=== PATIENT | female | born 1950 | race Caucasian/White ===

== ENCOUNTER → 2017-03-26 | Outpatient (CLI) | payer OTHER ==
[~2017-03-26] MED LIST: ATV/1 PO; B-CO1CAP17 PO; CHOL2000 PO; CHOLTAB3 PO; CYM60 PO; DULO60CA44 PO; FAMO20TA11 PO; LPT/40 PO; METO100T44 PO; NSNN50 NAE; OMEG10007 PO; OMEP40CA41 PO; OXYC1TAB3 PO; PRLSR20 PO; RXC5 PO; SUCR1TAB29 PO; SYMIN/8045 INH; VNTHFA/IN INH
--- NOTE | 2017-03-26 13:39 | MAMMOGRAPHY REPORT ---
BILATERAL DIGITAL SCREENING MAMMOGRAM WITH CAD: 03/26/2017 CLINICAL HISTORY: Routine screening. Patient has no complaints. TECHNIQUE: Current study was also evaluated with a Computer Aided Detection (CAD) system. Bilateral CC and MLO views were obtained. COMPARISON: Comparison is made to exams dated: 03/25/2016 mammogram, 03/22/2015 mammogram, 01/27/2014 m ammogram, 01/20/2013 mammogram, 01/15/2012 mammogram, and 01/21/2011 mammogram - [facility] enter. BREAST COMPOSITION: The tissue of both breasts is heterogeneously dense, which may obscure small mas ses. FINDINGS: No suspicious masses, calcifications, or areas of architectural distortion are noted in ei ther breast. There has been no significant interval change compared to prior exams. Bilateral benign -appearing calcifications are not significantly changed. 2 biopsy marker clips are again noted withi n the left upper outer quadrant. IMPRESSION: ACR BI-RADS CATEGORY 2: BENIGN There is no mammographic evidence of malignancy. A 1 year screening mammogram is recommended. The pa tient will receive written notification of the results. Approximately 10% of breast cancers are not detected with mammography. A negative mammographic report should not delay biopsy if a clinically suggestive mass is present. Gladis Putnam M.D. ah/:03/26/2017 11:58:54 Cdl B Driver: Mela MORA(Yulia)(Manuel)(BD), [facility] letter sent: Normal 1/2 BI-RADS Code: ACR BI-RADS Category 2: Benign
== END | disposition home or self-care (01) ==
LOC: C.MAMM 09:38
PROVIDERS: ATTEND Obstetrics & Gynecology
DX: Z12.31 Encounter for screening mammogram for malignant neoplasm of breast (principal)

== ENCOUNTER → 2017-06-12 | Outpatient (CLI) | payer OTHER ==
[~2017-06-12] MED LIST changes: -FAMO20TA11 PO; -METO100T44 PO; +METO1TAB69 PO; -OMEP40CA41 PO; -OXYC1TAB3 PO; -RXC5 PO; -SUCR1TAB29 PO
--- NOTE | 2017-06-12 15:19 | DIAGNOSTIC IMAGING REPORT ---
(CHEST) THORAX WITHOUT CT DOSE: 194.49 mGycm CLINICAL HISTORY: 67 years-old Female with PULMONARY NODULE. Pulmonary nodule follow-up. TECHNIQUE: Multiaxial CT images of the chest were performed without contrast. A dose lowering technique was utilized adhering to the principles of ALARA. COMPARISON: CT chest 06/16/2011, chest radiograph 09/24/2016. FINDINGS: Nodules are seen to the thyroid, largest on the right measuring 9 mm. The heart is normal in size without pericardial effusion. Coronary arterial calcifications are noted. There is moderate atherosclerotic plaquing of the aorta. No pathologically enlarged lymph nodes are seen by CT size criteria. There are a few scattered nonenlarged paratracheal lymph nodes which are unchanged and likely benign. Moderate centrilobular emphysematous changes are noted within upper lobe predominant distribution. There is a mildly spiculated noncalcified pulmonary nodule present within the right upper lobe seen on image 86 of series 4 measuring 7 x 5 mm, previously measuring 3 x 3 mm on study dated 06/16/2011. 3 mm noncalcified pulmonary nodule is present within the medial segment right middle lobe on image 136, unchanged compatible with benign etiology. Small right Bochdalek hernia. There is no pneumothorax, pleural effusion or focal airspace consolidation. No additional suspicious pulmonary nodules are seen. The central airways are patent. There is mild bronchial wall thickening bilaterally. Mild biapical pleural parenchymal scarring. Imaged upper abdominal structures are unremarkable. Right renal artery stent graft is noted. Soft tissues are unremarkable. Multilevel endplate spurring is seen throughout the thoracic spine. No suspicious lytic or blastic bony lesions. IMPRESSION: 1. Mildly spiculated noncalcified pulmonary nodule of the right upper lobe, 7 x 5 mm which has enlarged from prior study dated 06/16/2011. This is suspicious for a slow growing primary bronchogenic carcinoma. Please refer to the follow-up guidelines as below. 2. Upper lobe predominant centrilobular emphysema with mild bilateral bronchial wall thickening suggesting bronchitis. 3. Additional incidental findings as above. Please refer to below summary of Fleischner criteria recommendations for follow-up of incidental CT nodules (Cesar Rust, Guidelines for management of small pulmonary nodules detected on CT scans: A statement from the Fleischner Society, Radiology 237: 882-726 2021.) SOLID NODULES Solitary nodule size: <6 mm * Low risk patients: no follow-up needed * high risk patients: optional CT at 12 months Solitary nodule size: 6-8 mm * Low risk patients: follow-up at 6-12 months, then consider further follow-up at 18-24 months * high risk patients: initial follow-up CT at 6-12 months and then at 18-24 months if no change Solitary nodule size: >8 mm * either low or high risk patients - consider follow-up CT at 3 months, and/or CT-PET, and/or biopsy Multiple nodules size: <6 mm * Low risk patients: no routine follow-up * high risk patients: optional CT at 12 months Multiple nodules size: 6-8 mm * Low risk patients: follow-up at 3-6 months, then consider further follow-up at 18-24 months * high risk patients: follow-up at 3-6 months, then at 18-24 months if no change Multiple nodules size: >8 mm * Low risk patients: follow-up at 3-6 months, then consider further follow-up at 18-24 months * high risk patients: follow-up at 3-6 months, then at 18-24 months if no change Note: newly detected indeterminate nodule in persons 35 years of age or older. * Low risk patients: minimal or absent history of smoking and/or other known risk factors * high risk patients: history of smoking or of other known risk factors (e.g. first degree relative with lung cancer, or exposure to asbestos, radon, uranium) * if a nodule up to 8 mm is partly solid or is ground glass further follow-up is required after 24 months to exclude possible slow growing adenocarcinoma (VIANEY) SUBSOLID NODULES Solitary pure ground-glass nodule * nodule size <6 mm - no CT follow-up required * nodule size >=6 mm - follow-up CT at 6-12 months, then every 2 years until 5 years Solitary part-solid nodule * nodule size <6 mm - no CT follow-up required * nodule size >=6 mm - follow-up CT at 3-6 months. If unchanged, and solid component remains <6 mm, then annual follow-up for 5 years Multiple subsolid nodules * nodule size <6 mm - follow-up CT at 3-6 months, consider further follow-up at 2 and 4 years if stable * nodule size >=6 mm - follow-up CT at 3-6 months, subsequent management based on the most suspicious nodule(s) The above report was generated using voice recognition software. It may contain grammatical, syntax or spelling errors. Electronically signed by: Mike Luna M.D. 06/12/2017 3:18 PM Dictated Date/Time: 06/12/2017 3:11 PM
== END | disposition home or self-care (01) ==
LOC: C.CTS 14:28
PROVIDERS: ATTEND Internal Medicine
DX: R91.1 Solitary pulmonary nodule (principal); R91.8 Other nonspecific abnormal finding of lung field

== ENCOUNTER → 2017-06-16 | Outpatient (CLI) | payer OTHER ==
--- NOTE | 2017-06-16 14:27 | DIAGNOSTIC IMAGING REPORT ---
ULTRASOUND-GUIDED FINE-NEEDLE ASPIRATION OF A RIGHT THYROID NODULE HISTORY: Right thyroid nodule. COMPARISON: Thyroid nodule FNA 07/24/2016. PROCEDURE: Written informed consent was obtained. The neck was prepped and draped in the usual sterile fashion. 1% lidocaine was used for local anesthesia. A total of 2 passes using a 25-gauge needle were made through the right thyroid nodule under ultrasound guidance. Specimens were given to the on-site pathologist who determined adequate tissue for diagnosis. The patient tolerated the procedure well. There were no immediate complications. IMPRESSION: Successful ultrasound-guided fine-needle aspiration of a right thyroid nodule. Electronically signed by: Khris Lobo M.D. 06/16/2017 2:25 PM Dictated Date/Time: 06/16/2017 2:25 PM
== END | disposition home or self-care (01) ==
LOC: C.ULTR 12:38
PROVIDERS: ATTEND Internal Medicine
DX: E06.3 Autoimmune thyroiditis (principal)

== ENCOUNTER → 2017-06-29 | Outpatient (CLI) | payer OTHER ==
--- NOTE | 2017-06-29 13:16 | DIAGNOSTIC IMAGING REPORT ---
PET/CT SKULL-THIGH CLINICAL HISTORY: 67 years-old Female presenting with PULMONARY NODULE, 7 x 5 mm mildly spiculated noncalcified right lung nodule, occasional cough, history of COPD. TECHNIQUE: PET/CT was performed from the base of the skull through the proximal thighs following the intravenous administration of 9.475 mCi of F18-FDG. Blood glucose level 92 mg/dL. The injection was performed at 10:59 AM and imaging began at 12:[address] was performed for attenuation correction purposes and anatomic localization. COMPARISON: CT chest from 06/12/2017. CT DOSE (mGy.cm): The estimated cumulative dose is 1156.30. FINDINGS: Head and neck: There is no FDG-avid disease or significant lymphadenopathy in the imaged portions of the head and the neck. Chest: 7 mm photopenic nodule in the right thyroid lobe. No FDG avid axillary, mediastinal, or hilar lymphadenopathy. Atherosclerosis of the aorta. Heart size normal. Coronary artery calcification. No pleural or pericardial effusion. Previously noted spiculated nodule in the right upper lobe is again noted in the subpleural location and measuring 7 mm (max SUV 0.9). This is essentially equivalent to surrounding lung parenchyma (max SUV 0.5). Relation to the pleura is better demonstrated on prior chest CT. Emphysema. No additional nodule. Airways patent. Abdomen and pelvis: Below the diaphragm, physiologic distribution of radiotracer in the gastrointestinal and genitourinary tracts. No FDG avid or pathologically enlarged lymph nodes. Uterus surgically absent. Photopenic 3.3 cm cyst in the region of the left adnexa, likely within the left ovary. Atherosclerosis of the normal caliber abdominal aorta. Musculoskeletal: No FDG-avid or destructive bone lesion. IMPRESSION: 1. Initial PET/CT demonstrates a non-FDG avid 7 mm right upper lobe spiculated nodule. This nodule is indeterminate. However, this nodule is at the lower limits of resolution for PET CT. No lymphadenopathy or metastatic disease. This should be followed with chest CT per Angel Society 2017 recommendations below. 2. Photopenic 3.3 cm cyst in the left ovary. This is unexpected in a postmenopausal female, although likely benign. This could be further evaluated with pelvic ultrasound if clinically warranted. Please refer to below summary of Fleischner Society 2017 recommendations for follow-up of incidental CT nodules (H Yocasta et al. Guidelines for management of incidental pulmonary nodules detected on CT images: From the Fleischner Society 2017. Radiology 2017; 284: 228-243.) SOLID NODULES Single nodule; size < 6 mm * Low risk patients: No routine follow-up * High risk patients: Optional CT at 12 months Single nodule; size 6-8 mm * Low risk patients: CT at 6-12 months, then consider CT at 18-24 months * High risk patients: CT at 6-12 months, then at 18-24 months Single nodule; size > 8 mm * Either low or high risk patients: Considered CT at 3 months, PET/CT, or tissue sampling Multiple nodules; size < 6 mm * Low risk patients: No routine follow up * High risk patients: Optional CT at 12 months Multiple nodules; size 6-8 mm * Low risk patients: CT at 3-6 months, then consider CT at 18-24 months * High risk patients: CT at 3-6 months, then at 18-24 months Multiple nodules; size > 8 mm * Low risk patients: CT at 3-6 months, then consider at 18-24 months * High risk patients: CT at 3-6 months, then at 18-24 months Note: These guidelines apply to incidental nodules. These guidelines do not apply to patients younger than 35 years, immunocompromised patients, or patients with cancer. * Low risk patients: Minimal or absent history of smoking and/or other known risk factors * High risk patients: History of smoking, exposure to other carcinogens, emphysema, fibrosis, upper lobe location, family history of lung cancer, etc. * If a nodule up to 8 mm is partly solid or is ground glass, further follow-up is required after 24 months to exclude possible slow growing adenocarcinoma. SUBSOLID NODULES Single ground-glass nodule * Nodule size < 6 mm: No routine follow-up * Nodule size > or = 6 mm: CT at 6-12 months to confirm persistence, then CT every 2 years until 5 years Single part-solid nodule * Nodule size < 6 mm: No routine follow-up * Nodules size > or = 6 mm: CT at 3-6 months to confirm persistence. If unchanged and solid component remains < 6 mm, annual CT should be performed for 5 years Multiple nodules * Nodule size < 6 mm: CT at 3-6 months. If stable, consider CT at 2 and 4 years. * Nodules size > or = 6 mm: CT at 3-6 months. Subsequent management based on the most suspicious nodule(s) Electronically signed by: John Reyes M.D. 06/29/2017 1:15 PM Dictated Date/Time: 06/29/2017 1:03 PM
== END | disposition home or self-care (01) ==
LOC: C.PET 09:12
PROVIDERS: ATTEND Surgery
DX: R91.1 Solitary pulmonary nodule (principal); N83.202 Unspecified ovarian cyst, left side; Z78.0 Asymptomatic menopausal state

== ENCOUNTER → 2017-07-02 | Outpatient (CLI) | payer OTHER ==
[~2017-07-02] MED LIST changes: -CHOLTAB3 PO; -CYM60 PO; -NSNN50 NAE; -OMEG10007 PO
== END | disposition home or self-care (01) ==
LOC: C.MAMM 09:42
PROVIDERS: ATTEND Internal Medicine
DX: M81.0 Age-related osteoporosis without current pathological fracture (principal)

== ENCOUNTER → 2017-07-10 | Day surgery (SDC) | payer OTHER ==
[2017-07-01 09:44] VITALS: BMI 26.0
[2017-07-01 09:54] LABS: BASO % 0.6 %; BASO ABS # 0.04 K/uL (0-0.2); COMPLETE YES; EOS % 6.3 %; HEMATOCRIT 37.8 % (37-47); IG% 0.3 %; LYMPH % 32.1 %; LYMPH ABS # 2.04 K/uL (1.2-3.4); MEAN CELL VOLUME 91.5 fL (80-100); MEAN CORPUSCULAR HEMOGLOBIN 31.2 pg (25-34); MEAN CORPUSCULAR HGB CONC 34.1 g/dl (32-36); MEAN PLATELET VOLUME 9.2 fL (7.4-10.4); MONO % 5.2 %; NEUT % 55.5 %; PLATELET COUNT 264 K/uL (130-400); RED BLOOD COUNT 4.13 M/uL (4.2-5.4); WHITE BLOOD COUNT 6.36 K/uL (4.8-10.8)
--- NOTE | 2017-07-01 10:22 | PAT Medication Instructions ---
Service Date Jul 01, 2017. Current Home Medication List Albuterol Hfa (Ventolin Hfa), 1-2 PUFFS INH Q6H PRN for PRN Atorvastatin (Lipitor), 40 MG PO HS Budesonide/Formoterol Fumarate (Symbicort 80/4.5 Inhaler), 2 PUFFS INH BID Cholecalciferol (Vitamin D3), 1 CAP PO BID Duloxetine Hcl (Cymbalta), 60 MG PO QAM Lorazepam (Ativan), 1 MG PO QAM Lorazepam (Ativan), 0.5 MG PO HS Metoprolol Succ (Toprol Xl) (Toprol-Xl ), 100 MG PO QAM Omeprazole (Prilosec), 40 MG PO QAM Vitamin B Cmplx/Vitc/Folic Ac (Nephrocaps), 1 CAP PO QAM Medication Instructions For Your Scheduled Surgery - Hold the following medications the morning of surgery: Cholecalciferol (Vitamin D3), 1 CAP PO BID Vitamin B Cmplx/Vitc/Folic Ac (Nephrocaps), 1 CAP PO QAM - Take the following medications the morning of surgery with a sip of water: Metoprolol Succ (Toprol Xl) (Toprol-Xl ), 100 MG PO QAM Omeprazole (Prilosec), 40 MG PO QAM Duloxetine Hcl (Cymbalta), 60 MG PO QAM Lorazepam (Ativan), 1 MG PO QAM Budesonide/Formoterol Fumarate (Symbicort 80/4.5 Inhaler), 2 PUFFS INH BID Albuterol Hfa (Ventolin Hfa), 1-2 PUFFS INH Q6H PRN for PRN (if needed) - Take the following medications as scheduled the night before surgery: Lorazepam (Ativan), 0.5 MG PO HS Budesonide/Formoterol Fumarate (Symbicort 80/4.5 Inhaler), 2 PUFFS INH BID Albuterol Hfa (Ventolin Hfa), 1-2 PUFFS INH Q6H PRN for PRN (if needed) Atorvastatin (Lipitor), 40 MG PO HS Cholecalciferol (Vitamin D3), 1 CAP PO BID If you have any questions please call us at [phone] or [phone] or [phone]
[2017-07-01 10:41] LABS: BUN/CREATININE RATIO 13.1 (10-20); CALCIUM 9.1 mg/dl (8.5-10.1); CREATININE 0.85 mg/dl (0.60-1.20); POTASSIUM 4.7 mmol/L (3.5-5.1)
[~2017-07-10] VITALS: Ht 160 cm; Wt 67.7 kg
[~2017-07-10] MED LIST changes: +ATROPINE SULFATE 0.1 MG/ML 5ML SYR IV PRN; +CLINDAMYCIN PHOS 150 MG/ML 2 ML VIAL ONE; +DEXAMETHASONE SOD INJ 4 MG/ML VIAL ONE; +EpHEDrine SULFATE 50MG/5ML SYR ONE; +EpHEDrine SULFATE INJ 50 MG/ML AMP IV PRN; +FENTANYL CITRATE INJ 50 MCG/1 ML 2 ML VIAL IV PRN; +FENTANYL CITRATE INJ 50 MCG/1 ML 2 ML VIAL ONE; +GLYCOPYRROLATE INJ 0.2 MG/ML VIAL ONE; +LACTATED RINGER'S 1000ML 1,000 ML IV SCH; +LARYING-O-JET KIT (LTA) ONE; +LIDOCAINE HCL 2% 2 ML VIAL (20MG/ML) ONE; +METHYLENE BLUE 0.5% 10 ML VIAL ONE; +NEOSTIGMINE METHYLSULFATE 5 MG/5 ML SYR ONE; +ONDANSETRON INJ 2 MG/ML 2 ML VIAL IV PRN; +ONDANSETRON INJ 2 MG/ML 2 ML VIAL ONE; +PROPOFOL IV EMULSION 10 MG/ML 20 ML VIAL IV ONE; +ROCURONIUM BROMIDE 10 MG/ML 5 ML VIAL IV ONE
[2017-07-10 08:06] VITALS: Ht 160 cm; Wt 67.7 kg
--- NOTE | 2017-07-10 09:00 | History & Physical Bridge Note ---
H&P Re-Evaluation Bridge Note: I have examined the patient, reviewed the History & Physical and in the interval since the performance of the History & Physical I have noted the following changes of clinical significance: No changes noted
--- NOTE | 2017-07-10 09:22 | Discharge Instructions ---
Discharge Instructions Date of Service Jul 10, 2017. Visit Reason for Visit: Right Lung Nodule Discharge Discharge Diagnosis / Problem: Right Lung Nodule Discharge Goals Goal(s): Learn about illness Activity Recommendations Activity Limitations: resume your previous activity (in 24 hours) Lifting Limitations: none Anesthesia . Post Anesthesia Instructions: If you have had General Anesthesia or IV Sedation: * Do not drive today. * Resume driving when surgeon permits. * Do not make important decisions or sign legal documents today. * Call surgeon for: 1. Temperature elevations greater than 101 degrees F. 2. Uncontrollable pain. 3. Excessive bleeding. 4. Persistent nausea and vomiting. 5. Medication intolerance (nausea, vomiting or rash). * For nausea and vomiting use only clear liquids such as: tea, soda, bouillon until nausea subsides, then gradually increase diet as tolerated. * If you have any concerns or questions, call your surgeon's office. If physician is unavailable and it is an emergency, call 911 or go to the nearest emergency room. . Instructions / Follow-Up Instructions / Follow-Up 1. You may cough up some blood. Call physician if excessive amount noted. 2. Keep your scheduled appointment with Dr. Guzman on July 16, 2017 @ 9: 30 am. Diet Recommendations Recommended Home Diet: resume previous diet Pending Studies Studies pending at discharge: no Medical Emergencies . Who to Call and When: Medical Emergencies: If at any time you feel your situation is an emergency, please call 911 immediately. . Non-Emergent Contact Non-Emergency issues call your: Surgeon Call Non-Emergent contact if: you have a fever, your pain is not controlled . . "Provider Documentation" section prepared by Vince Du. .
--- NOTE | 2017-07-10 12:22 | DIAGNOSTIC IMAGING REPORT ---
CHEST ONE VIEW PORTABLE CLINICAL HISTORY: FOB with fiducial marker. COMPARISON STUDY: Chest CT June 12, 2017. FINDINGS: There is no pneumothorax status post bronchoscopy. A fiducial marker within the right upper lobe is noted. There is no evidence of pleural edema. Cardiomediastinal silhouette is normal. Note is made of a 4.7 cm linear radiodensity which is on the patient. IMPRESSION: No pneumothorax following bronchoscopy. Electronically signed by: Jalen Oliver M.D. 07/10/2017 12:21 PM Dictated Date/Time: 07/10/2017 12:02 PM
[2017-07-10 12:30] VITALS: BP 131/59; PULSE 66; TEMP 36.7; O2SAT 96
--- NOTE | 2017-07-10 12:30 | Anesthesiology Progress Note ---
Anesthesia Post Op Note Date & Time Jul 10, 2017 at 12:30 Vital Signs Pain Intensity: 0 Vital Signs Past 12 Hours Date Time Temp Pulse Resp B/P (MAP) Pulse Ox O2 Delivery O2 Flow Rate FiO2 07/10/17 12:15 36.4 61 20 131/71 96 Nasal Cannula 2 07/10/17 12:05 36.4 64 20 136/64 97 Nasal Cannula 2 07/10/17 11:50 63 18 136/70 93 Room Air 07/10/17 11:40 64 16 137/69 100 Oxymask 10 07/10/17 11:30 67 16 134/70 100 Oxymask 10 07/10/17 11:20 36.5 72 16 166/83 100 Oxymask 10 Notes Mental Status: alert / awake / arousable, participated in evaluation Pt Amnestic to Procedure: Yes Nausea / Vomiting: adequately controlled Pain: adequately controlled Airway Patency, RR, SpO2: stable & adequate BP & HR: stable & adequate Hydration State: stable & adequate Anesthetic Complications: no major complications apparent
--- NOTE | 2017-07-10 12:32 | DIAGNOSTIC IMAGING REPORT ---
CHEST 1 VIEW FRONTAL CLINICAL HISTORY: NAVIGATIONAL BRONCH/ FIDUCIAL MARKERS COMPARISON STUDY: Chest CT June 12, 2017. Fluoroscopy time: 87 seconds. FINDINGS: 1 fluoroscopic image of the right upper hemithorax during bronchoscopy was noted. Fiducial marker is noted. IMPRESSION: Fluoroscopic images from bronchoscopy with placement of a fiducial marker within the right upper lobe. Electronically signed by: Jalen Oliver M.D. 07/10/2017 12:31 PM Dictated Date/Time: 07/10/2017 12:30 PM
[2017-07-10 12:59] VITALS: BP 121/60; PULSE 66; O2SAT 95
[2017-07-10 13:25] VITALS: BP 131/63; PULSE 67; TEMP 36.4; O2SAT 93
--- NOTE | 2017-07-10 14:17 | OPERATIVE REPORT ---
DATE OF OPERATION: 07/10/2017 PROCEDURE: 1. Endobronchial ultrasound biopsy. 2. [place] biopsies of the right upper lobe lesion with marking using a fiducial marker. SURGEON: Dr. Guzman. SHIP CARPENTER: Cj Du PA-C. ANESTHESIA: General anesthesia endotracheal intubation. INDICATION FOR PROCEDURE AND FINDINGS: This is a 68-year-old female who was found to have a mass in the right upper lobe which is fairly small, but suspicious for carcinoma. She does have risk factors which put her in a higher risk category. On 07/10/2017 I took the patient to the operating room and did an endobronchial ultrasound. I really did not see much in the way of lymphadenopathy. I did biopsy the level 7 and level 4 node on the right, but these were very small. I did not spend much time doing this. I then went out and was able to come right up to the mass. I saw it in the radial ultrasound. We did brushings. I did not do a needle or biopsy with the forceps as it was not going to change our operative plan. It was right against the pleura, I did not want to risk pneumothorax. Fiducial markers was left. We did washings. She tolerated it well. PROCEDURE: The patient was brought to the operating room and laid in the supine position. General anesthesia induced and endotracheal intubation was performed. After appropriate timeout had been called and antibiotics had been administered endobronchial ultrasound scope was placed. I carefully inspected each airway and saw no endobronchial lesions. I also carefully looked at lymph node stations and really there was no lymphadenopathy in any lymph node station. I did biopsy a level 7 node in the subcarinal area. I then pulled up a very small lymph node in the right level 4 area which I biopsied several times with the needle. We got into no bleeding with this. I then switched the scope to a fiberoptic scope and did not see any endobronchial lesions again and then placed the navigational bronchoscopy probe. I then registered the airways and then went out into the right upper lobe and was able to get my computer probe out to the mass. A radial ultrasound probe showed this to be in correct position. I did several brushes of this. I then did washings and then left a fiducial marker. We checked the radial ultrasound probe several times to make sure we were in the correct position and it appeared that we were by realtime ultrasound. I then irrigated out with 30 mL of normal saline and then aspirated it back in. I then irrigated out. I attest to the content of the Intraoperative Record and any orders documented therein. Any exception s are noted below.
== END | disposition home or self-care (01) ==
LOC: C.ACU 07:47
PROVIDERS: ATTEND Surgery
DX: R91.1 Solitary pulmonary nodule (principal); I10 Essential (primary) hypertension; E78.5 Hyperlipidemia, unspecified; K21.9 Gastro-esophageal reflux disease without esophagitis; J45.909 Unspecified asthma, uncomplicated; F41.9 Anxiety disorder, unspecified; G47.33 Obstructive sleep apnea (adult) (pediatric); I73.9 Peripheral vascular disease, unspecified; Z85.41 Personal history of malignant neoplasm of cervix uteri; Z90.710 Acquired absence of both cervix and uterus; Z98.890 Other specified postprocedural states; Z79.899 Other long term (current) drug therapy; Z88.1 Allergy status to other antibiotic agents; Z68.26 Body mass index [BMI] 26.0-26.9, adult

== ENCOUNTER → 2017-09-04 | Outpatient (CLI) | payer OTHER ==
[~2017-09-04] MED LIST changes: -ATROPINE SULFATE 0.1 MG/ML 5ML SYR IV PRN; -CLINDAMYCIN PHOS 150 MG/ML 2 ML VIAL ONE; -DEXAMETHASONE SOD INJ 4 MG/ML VIAL ONE; -EpHEDrine SULFATE 50MG/5ML SYR ONE; -EpHEDrine SULFATE INJ 50 MG/ML AMP IV PRN; -FENTANYL CITRATE INJ 50 MCG/1 ML 2 ML VIAL IV PRN; -FENTANYL CITRATE INJ 50 MCG/1 ML 2 ML VIAL ONE; -GLYCOPYRROLATE INJ 0.2 MG/ML VIAL ONE; -LACTATED RINGER'S 1000ML 1,000 ML IV SCH; -LARYING-O-JET KIT (LTA) ONE; -LIDOCAINE HCL 2% 2 ML VIAL (20MG/ML) ONE; -METHYLENE BLUE 0.5% 10 ML VIAL ONE; +METO100T44 PO; -METO1TAB69 PO; -NEOSTIGMINE METHYLSULFATE 5 MG/5 ML SYR ONE; +OMEP40CA41 PO; -ONDANSETRON INJ 2 MG/ML 2 ML VIAL IV PRN; -ONDANSETRON INJ 2 MG/ML 2 ML VIAL ONE; -PRLSR20 PO; -PROPOFOL IV EMULSION 10 MG/ML 20 ML VIAL IV ONE; -ROCURONIUM BROMIDE 10 MG/ML 5 ML VIAL IV ONE; +RXC5 PO
[2017-09-04 17:10] LABS: BASO ABS # 0.06 K/uL (0-0.2); COMPLETE YES; EOS % 3.9 %; HEMATOCRIT 37.3 % (37-47); IG% 0.2 %; MEAN CORPUSCULAR HEMOGLOBIN 30.7 pg (25-34); MEAN CORPUSCULAR HGB CONC 33.8 g/dl (32-36); MEAN PLATELET VOLUME 9.8 fL (7.4-10.4); MONO % 9.3 %; NEUT % 53.6 %; PLATELET COUNT 289 K/uL (130-400); WHITE BLOOD COUNT 5.94 K/uL (4.8-10.8)
[2017-09-04 17:17] LABS: ALT/SGPT 23 U/L (12-78); AMYLASE 40 U/L (25-115); AST/SGOT 19 U/L (15-37); BLOOD UREA NITROGEN 18 mg/dl (7-18); BUN/CREATININE RATIO 20.6 (10-20); CALCIUM 9.2 mg/dl (8.5-10.1); CARBON DIOXIDE 27 mmol/L (21-32); CHLORIDE 104 mmol/L (98-107); CREATININE 0.87 mg/dl (0.60-1.20); GLUCOSE 104 mg/dl (70-99); POTASSIUM 3.8 mmol/L (3.5-5.1); SODIUM 136 mmol/L (136-145)
[2017-09-04 17:19] LABS: ALKALINE PHOSPHATASE 88 U/L (45-117)
== END | disposition home or self-care (01) ==
LOC: C.LABBC 15:23
PROVIDERS: ATTEND Physician Assistant Medical
DX: R10.9 Unspecified abdominal pain (principal)

== ENCOUNTER → 2017-09-07 | Outpatient (CLI) | payer OTHER ==
--- NOTE | 2017-09-07 12:22 | DIAGNOSTIC IMAGING REPORT ---
CHEST 2 VIEWS ROUTINE CLINICAL HISTORY: Lung cancer. Cough. COMPARISON STUDY: Chest CT June 12, 2017 and chest radiograph August 05, 2017. PET/CT June 29, 2017. FINDINGS: Postoperative findings within the right lung with volume loss are noted. Surgical staple lines are noted. A 4.8 x 3.3 cm nodular opacity which projects over the operative bed has decreased in size. There is a small loculated right pleural effusion. The gaseous component has resolved since prior exam. There is no evidence of pulmonary edema. Cardiomediastinal silhouette is normal. IMPRESSION: Resolving postoperative findings within the right lung. A 4.8 x 3.3 cm operative bed nodular opacity favors loculated fluid however can be assessed on subsequent exams to ensure resolution. Interval resolution of the gaseous component with a small residual loculated right pleural effusion. Electronically signed by: Jalen Oliver M.D. 09/07/2017 12:21 PM Dictated Date/Time: 09/07/2017 12:15 PM
== END | disposition home or self-care (01) ==
LOC: C.RAD 11:41
PROVIDERS: ATTEND Physician Assistant
DX: R91.8 Other nonspecific abnormal finding of lung field (principal)

== ENCOUNTER 2017-09-10 11:36 | Emergency (ER) | payer OTHER ==
[~2017-09-10] VITALS: Ht 160 cm; Wt 66.3 kg
[2017-09-10 11:49] VITALS: TEMP 36.7; Ht 160 cm; Wt 66.3 kg
[2017-09-10] MEDS ORDERED: SODIUM CHLORIDE 0.9% 1000ML 1,000 ML IV STA (12:42)
--- NOTE | 2017-09-10 12:48 | EMERGENCY ROOM VISIT NOTE ---
History Report prepared by Dang: Luke Bess Under the Supervision of: Dr. Ulisses Richmond M.D. First contact with patient: 12:33 Chief Complaint: GI ASSESSMENT Stated Complaint: BLOOD IN STOOLS Nursing Triage Summary: pain in abdomen after eating. If I lay down after I eat the pain gets better. had lung ca and operation by dr oconnell about 6 weeks ago and this has been ongoing since History of Present Illness The patient is a 67 year old female who presents to the Emergency Room with complaints of pain in her abdomen as well as pain when she eats. The patient had lung cancer surgery recently and was referred to come to the ED per her PCP' s instructions. Her stools are charcoal black and have been going on for 1 week. The patient has been taking NSAIDs regularly. Of note, the patient has had limited dietary intake. She denies LOC and chest pain. She endorses dizziness when she gets up. The patient recently changed her medication from Omeprazole to a stronger antacid. Source of History: patient, spouse/significant other Onset: 1 week Position: abdomen Quality: other (pain ) Timing: constant Modifying Factors (Worsening): eating Modifying Factors (Relieving): ibuprofen, antacids Associated Symptoms: No LOC, No chest pain Note: dizziness when moving around Review of Systems See HPI for pertinent positives & negatives. A total of 10 systems reviewed and were otherwise negative. Past Medical & Surgical Medical Problems: (1) Lung cancer Social History Smoking Status: Never Smoker Alcohol Use: none Marital Status: Housing Status: lives with significant other Current/Historical Medications Scheduled Atorvastatin (Lipitor), 40 MG PO HS Budesonide/Formoterol Fumarate (Symbicort 80/4.5 Inhaler), 2 PUFFS INH BID Cholecalciferol (Vitamin D3), 1 CAP PO BID Duloxetine Hcl (Cymbalta), 60 MG PO QAM Famotidine (Pepcid), 20 MG PO DAILY Lorazepam (Ativan), 0.5 MG PO HS Lorazepam (Ativan), 1 MG PO QAM Metoprolol Succ (Toprol Xl) (Toprol-Xl ), 100 MG PO QAM Sucralfate (Carafate), 1 GM PO DIRECTED Vitamin B Cmplx/Vitc/Folic Ac (Nephrocaps), 1 CAP PO QAM Scheduled PRN Albuterol Hfa (Ventolin Hfa), 1-2 PUFFS INH Q6H PRN for PRN Oxycodone Immediate Rel Tab (Roxicodone Ir), 1-2 TAB PO Q4H PRN for Severe Pain Allergies Coded Allergies: Moxifloxacin (Verified Allergy, Severe, HYPOTENSION, ERYTHEMA, 09/10/17) Quinolones (Verified Allergy, Severe, ANAPHYLAXIS, 09/10/17) Warfarin (Verified Allergy, Intermediate, HIVES, 09/10/17) Clopidogrel (Verified Allergy, Unknown, UNKNOWN, 09/10/17) Escitalopram (Verified Allergy, Unknown, HIVES, 09/10/17) Phenytoin (Verified Allergy, Unknown, UNKNOWN, 09/10/17) Prednisone (Verified Allergy, Unknown, HIVES, 09/10/17) Azithromycin (Verified Adverse Reaction, Unknown, TACHYCARDIA, 09/10/17) Sulfamethoxazole w/Trimethoprim (Verified Adverse Reaction, Unknown, DRIES ME OUT, 09/10/17) Physical Exam Vital Signs Date Time Temp Pulse Resp B/P (MAP) Pulse Ox O2 Delivery O2 Flow Rate FiO2 09/10/17 15:38 70 18 167/93 100 09/10/17 15:15 70 18 167/93 100 Room Air 09/10/17 13:28 70 20 142/80 100 Room Air 09/10/17 13:24 67 20 159/78 100 Room Air 67 159/83 70 142/80 09/10/17 11:49 36.7 80 18 135/82 99 Room Air Physical Exam GENERAL: Patient is well appearing and in no acute distress. HEENT: No acute trauma, normocephalic atraumatic, dry mucous membranes, no nasal congestion, no scleral icterus. pale conjunctiva NECK: No stridor, no adenopathy, no meningismus, trachea is midline. LUNGS: No dyspnea. Clear to auscultation and equal bilaterally. No wheeze, no rhonchi. HEART: Regular rate and rhythm. No murmurs, rubs, gallops appreciated. ABDOMEN: Soft, nontender, bowel sounds positive, no masses appreciated, no peritonitis. Mild epigastric tenderness to palpation. BACK: No midline tenderness, no CVA tenderness EXTREMITIES: Normal motion all extremities, no cyanosis, no edema. NEUROLOGIC: Alert and oriented, no acute motor or sensory deficits, no focal weakness, cranial nerves grossly intact. SKIN: No rash, no jaundice, no diaphoresis. RECTUM: Scant black, heme positive stool. No fluctuance with small hemorrhoids. Medical Decision & Procedures ER Provider Diagnostic Interpretation: Radiology results and stated below per my review and radiologist interpretation: ABDOMEN AND PELVIS CT WITH IV CONTRAST CT DOSE: 312.90 mGy.cm HISTORY: Acute epigastric abdominal pain. History of recent lung surgery. epigastric pain TECHNIQUE: Multiaxial CT images of the abdomen and pelvis were performed following the use of intravenous contrast. A dose lowering technique was utilized adhering to the principles of ALARA. COMPARISON STUDY: Chest radiograph 6 09/07/2017, PET CT 06/29/2017. FINDINGS: Trace right pleural effusion. Centrilobular emphysematous changes are noted with areas of subsegmental linear fibrotic change. There is no pneumatosis or pneumoperitoneum. Imaged inferior cardiac chambers are mildly enlarged. Coronary arterial calcifications noted. The liver, spleen, gallbladder, pancreas and adrenal glands are within normal limits. Kidneys, ureters and urinary bladder are unremarkable. Prior hysterectomy. 3.2 x 3.0 cm cystic lesion of the left adnexa redemonstrated. Moderate atherosclerosis of the aorta. No bulky adenopathy. No large hiatal hernia identified. No bowel obstruction or focal bowel wall thickening. No inflammatory changes of the abdomen or pelvis identified. There is moderate volume of formed stool throughout the colon suggesting constipation. High attenuating material is noted within a noninflamed appearing appendix. Soft tissues are unremarkable. Bones appear intact. No suspicious lytic or blastic bony lesions to suggest metastasis. Facet arthrosis of the lower lumbar spine. IMPRESSION: 1. No acute intra-abdominal or intrapelvic abnormality identified. 2. Trace right pleural effusion with emphysema. 3. Suggested constipation. 4. Unilocular cystic lesion of the left adnexum is again seen, 3.2 cm. This could be correlated with a follow-up pelvic ultrasound. 5. Prior hysterectomy. Electronically signed by: Mike Luna M.D. 09/10/2017 2:31 PM Laboratory Results 09/10/17 12:10 Red Blood Count 4.23, Mean Corpuscular Volume 92.0, Mean Corpuscular Hemoglobin 31.9, Mean Corpuscular Hemoglobin Concent 34.7, Mean Platelet Volume 9.4, Neutrophils (%) (Auto) 49.9, Lymphocytes (%) (Auto) 34.8, Monocytes (%) (Auto) 7.7, Eosinophils (%) (Auto) 6.4, Basophils (%) (Auto) 1.0, Neutrophils # (Auto) 2.99, Lymphocytes # (Auto) 2.08, Monocytes # (Auto) 0.46, Eosinophils # (Auto) 0.38, Basophils # (Auto) 0.06 09/10/17 12:10 Test 09/10/17 12:10 09/10/17 13:30 White Blood Count 5.98 K/uL (4.8-10.8) Red Blood Count 4.23 M/uL (4.2-5.4) Hemoglobin 13.5 g/dL (12.0-16.0) Hematocrit 38.9 % (37-47) Mean Corpuscular Volume 92.0 fL (80-100) Mean Corpuscular Hemoglobin 31.9 pg (25-34) Mean Corpuscular Hemoglobin Concent 34.7 g/dl (32-36) Platelet Count 323 K/uL (130-400) Mean Platelet Volume 9.4 fL (7.4-10.4) Neutrophils (%) (Auto) 49.9 % Lymphocytes (%) (Auto) 34.8 % Monocytes (%) (Auto) 7.7 % Eosinophils (%) (Auto) 6.4 % Basophils (%) (Auto) 1.0 % Neutrophils # (Auto) 2.99 K/uL (1.4-6.5) Lymphocytes # (Auto) 2.08 K/uL (1.2-3.4) Monocytes # (Auto) 0.46 K/uL (0.11-0.59) Eosinophils # (Auto) 0.38 K/uL (0-0.5) Basophils # (Auto) 0.06 K/uL (0-0.2) RDW Standard Deviation 42.8 fL (36.4-46.3) RDW Coefficient of Variation 12.7 % (11.5-14.5) Immature Granulocyte % (Auto) 0.2 % Immature Granulocyte # (Auto) 0.01 K/uL (0.00-0.02) Anion Gap 6.0 mmol/L (3-11) Est Creatinine Clear Calc Drug Dose 59.7 ml/min Estimated GFR () 82.2 Estimated GFR (Non- 70.9 BUN/Creatinine Ratio 15.1 (10-20) Calcium Level 9.2 mg/dl (8.5-10.1) Total Bilirubin 0.3 mg/dl (0.2-1) Direct Bilirubin < 0.1 mg/dl (0-0.2) Aspartate Amino Transf (AST/SGOT) 19 U/L (15-37) Alanine Aminotransferase (ALT/SGPT) 20 U/L (12-78) Alkaline Phosphatase 93 U/L (45-117) Total Protein 8.1 gm/dl (6.4-8.2) Albumin 4.2 gm/dl (3.4-5.0) Lipase 221 U/L (73-393) Urine Color YELLOW Urine Appearance CLEAR (CLEAR) Urine pH 5.5 (4.5-7.5) Urine Specific [place] 1.010 (1.000-1.030) Urine Protein NEG (NEG) Urine Glucose (UA) NEG (NEG) Urine Ketones NEG (NEG) Urine Occult Blood NEG (NEG) Urine Nitrite NEG (NEG) Urine Bilirubin NEG (NEG) Urine Urobilinogen NEG (NEG) Urine Leukocyte Esterase TRACE (NEG) Urine WBC (Auto) 1-5 /hpf (0-5) Urine RBC (Auto) 0-4 /hpf (0-4) Urine Hyaline Casts (Auto) 1-5 /lpf (0-5) Urine Epithelial Cells (Auto) >30 /lpf (0-5) Urine Bacteria (Auto) NEG (NEG) Laboratory results as reviewed by me. Medications Administered Medications (Trade) Dose Ordered Sig/Camille Route Start Time Stop Time Status Last Admin Dose Admin Sodium Chloride 1,000 ml @ 999 mls/hr Q1H1M STAT IV 09/10/17 12:42 09/10/17 13:42 DC 09/10/17 13:28 999 MLS/HR Lidocaine HCl (Viscous Lidocaine 2% Soln) 20 ml STK-MED ONCE .ROUTE 09/10/17 15:29 09/10/17 15:30 DC 09/10/17 15:32 20 ML Al Hydroxide/Mg Hydroxide (Maalox Susp) 30 ml STK-MED ONCE .ROUTE 09/10/17 15:29 09/10/17 15:30 DC 09/10/17 15:32 30 ML ED Course 1342: I performed a rectal exam on the patient. 1402: I discussed the pros and cons of CT scans of the abdomen and the patient will proceed with a CT scan. 1502: I checked on the patient and she will follow up with her PCP regarding her abdominal pain and ovarian cyst. Medical Decision Differential: Cholecystitis, Gallbladder disfunction, Hepatic Disfunction, Gastritis/PUD, Pancreatitis, ACS, Aortic Pathology, amongst other pathologies entertained. Very pleasant 67 yr old female with post prandial epigastric pain over last 1wk + that has been slowly worsening. Associated with black stools. Scant stool in rectal vault though small amount if black and heme positive. Given her heavy NSAID use, recent surgery, frequent Caffeine, etc, and description, seems likely this is PUD/gastritis, however she has complicating other issues such as recent surgery, and cancer history. Given her symptoms and exam i do not feel this is ACS. Fortunately vitals good, Hgb Good and otherwise labs OK. With other issues I did feel CT was indicated which was fortunately remarkable just for known left ovarian cyst (which I made clear to her she should discuss with her PCP). I made clear she must stop NSAIDs along with other risk issues. Given pain issues I did feel it reasonable for Oxy IR, though we reviewed risks restrictions. She is unsure the anti-acid she is on, but regardless I feel single extra dose Pepcid reasonable. Will do achs Carafate as well. Given she is stable, not on blood thinners, and HgB OK I feel that outpatient is reasonable option which she agrees with. Reviewed symptoms requiring emergent return/911. Discussed need for her to get left ovarian cyst evaluated as well as further evaluation of epigastric pain with possible scope. Impression Primary Impression: Epigastric abdominal pain Additional Impressions: Left ovarian cyst Peptic ulcer disease Scribe Attestation The scribe's documentation has been prepared under my direction and personally reviewed by me in its entirety. I confirm that the note above accurately reflects all work, treatment, procedures, and medical decision making performed by me. Departure Information Dispostion Home / Self-Care Prescriptions Oxycodone Immediate Rel Tab (ROXICODONE IR) 5 Mg Tab 1-2 TAB PO Q4H Y for Severe Pain, #8 TAB Prov: Ulisses Richmond M.D. 09/10/17 Famotidine (Pepcid) 20 Mg Tab 20 MG PO DAILY for 15 Days, #15 TAB Prov: Ulisses Richmond M.D. 09/10/17 Sucralfate (CARAFATE) 1 Gm Tab 1 GM PO DIRECTED for 30 Days, #120 TAB Take by mouth (crushed with small amount of water) 30 min prior to eating and bed. Prov: Ulisses Richmond M.D. 09/10/17 Referrals John Gonzales M.D. (PCP) Patient Instructions ED PUD Vs Gastritis, My [facility] Additional Instructions It is very important you follow up with your PCP to discuss further testing regarding your pain as well as the cyst on your left ovary. You have received a narcotic pain medication prescription. These medications may cause drowsiness and should not be used with other sedative medications. Do not drive, drink alcohol, perform dangerous activities, nor make important decisions after taking these medications. custodial use or inappropriate use may lead to addiction. Problem Qualifiers
[2017-09-10 13:50] LABS: BASO ABS # 0.06 K/uL (0-0.2); COMPLETE YES; EOS % 6.4 %; HEMATOCRIT 38.9 % (37-47); IG% 0.2 %; LYMPH % 34.8 %; LYMPH ABS # 2.08 K/uL (1.2-3.4); MEAN CORPUSCULAR HEMOGLOBIN 31.9 pg (25-34); MEAN CORPUSCULAR HGB CONC 34.7 g/dl (32-36); MEAN PLATELET VOLUME 9.4 fL (7.4-10.4); MONO % 7.7 %; NEUT % 49.9 %; PLATELET COUNT 323 K/uL (130-400); RED BLOOD COUNT 4.23 M/uL (4.2-5.4); WHITE BLOOD COUNT 5.98 K/uL (4.8-10.8)
[2017-09-10 14:00] LABS: ALT/SGPT 20 U/L (12-78); BLOOD UREA NITROGEN 13 mg/dl (7-18); BUN/CREATININE RATIO 15.1 (10-20); CALCIUM 9.2 mg/dl (8.5-10.1); CARBON DIOXIDE 27 mmol/L (21-32); CHLORIDE 104 mmol/L (98-107); CREATININE 0.86 mg/dl (0.60-1.20); GLUCOSE 75 mg/dl (70-99); POTASSIUM 3.8 mmol/L (3.5-5.1); SODIUM 137 mmol/L (136-145)
[2017-09-10 14:03] LABS: ALKALINE PHOSPHATASE 93 U/L (45-117); AST/SGOT 19 U/L (15-37)
[2017-09-10] MEDS ORDERED: OPTIRAY 320 IV PRN (14:15)
[2017-09-10 14:18] LABS: URINE APPEARANCE CLEAR (CLEAR); URINE BILIRUBIN NEG (NEG); URINE COLOR YELLOW; URINE EPITHELIAL CELL AUTO >30 /lpf (0-5); URINE NITRITE NEG (NEG); URINE PH 5.5 (4.5-7.5); UROBILINOGEN NEG (NEG); ZZUR CULT IF INDIC CLEAN CATCH NO
[2017-09-10 14:23] LABS: MANUAL MICROSCOPIC REQUIRED? NO; REVIEW REQ? NO
--- NOTE | 2017-09-10 14:33 | DIAGNOSTIC IMAGING REPORT ---
ABDOMEN AND PELVIS CT WITH IV CONTRAST CT DOSE: 312.90 mGy.cm HISTORY: Acute epigastric abdominal pain. History of recent lung surgery. epigastric pain TECHNIQUE: Multiaxial CT images of the abdomen and pelvis were performed following the use of intravenous contrast. A dose lowering technique was utilized adhering to the principles of ALARA. COMPARISON STUDY: Chest radiograph 6 09/07/2017, PET CT 06/29/2017. FINDINGS: Trace right pleural effusion. Centrilobular emphysematous changes are noted with areas of subsegmental linear fibrotic change. There is no pneumatosis or pneumoperitoneum. Imaged inferior cardiac chambers are mildly enlarged. Coronary arterial calcifications noted. The liver, spleen, gallbladder, pancreas and adrenal glands are within normal limits. Kidneys, ureters and urinary bladder are unremarkable. Prior hysterectomy. 3.2 x 3.0 cm cystic lesion of the left adnexa redemonstrated. Moderate atherosclerosis of the aorta. No bulky adenopathy. No large hiatal hernia identified. No bowel obstruction or focal bowel wall thickening. No inflammatory changes of the abdomen or pelvis identified. There is moderate volume of formed stool throughout the colon suggesting constipation. High attenuating material is noted within a noninflamed appearing appendix. Soft tissues are unremarkable. Bones appear intact. No suspicious lytic or blastic bony lesions to suggest metastasis. Facet arthrosis of the lower lumbar spine. IMPRESSION: 1. No acute intra-abdominal or intrapelvic abnormality identified. 2. Trace right pleural effusion with emphysema. 3. Suggested constipation. 4. Unilocular cystic lesion of the left adnexum is again seen, 3.2 cm. This could be correlated with a follow-up pelvic ultrasound. 5. Prior hysterectomy. Electronically signed by: Mike Luna M.D. 09/10/2017 2:31 PM Dictated Date/Time: 09/10/2017 2:25 PM
[2017-09-10] MEDS ORDERED: GI COCKTAIL PO STA (15:02)
[2017-09-10] MEDS ORDERED: OXYC1TAB3 PO (15:10)
[2017-09-10] MEDS ORDERED: FAMO20TA11 PO (15:10)
[2017-09-10] MEDS ORDERED: SUCR1TAB29 PO (15:10)
[2017-09-10] MEDS ORDERED: ALUMINUM/MAGNESIUM SUSP 30 ML UDC ONE (15:29)
[2017-09-10] MEDS ORDERED: LIDOCAINE HCL 2% VISC SOLN 20 ML UDC ONE (15:29)
[2017-09-10 15:38] VITALS: BP 167/93; PULSE 70; O2SAT 100
== END 2017-09-10 15:40 | disposition home or self-care (01) ==
LOC: C.EDB 11:38 → C.EDC 15:40
DX: N83.202 Unspecified ovarian cyst, left side (principal); K27.9 Peptic ulcer, site unspecified, unspecified as acute or chronic, without hemorrhage or perforation; Z85.118 Personal history of other malignant neoplasm of bronchus and lung; Z79.899 Other long term (current) drug therapy

== ENCOUNTER → 2017-10-13 | Outpatient (CLI) | payer OTHER ==
[~2017-10-13] MED LIST changes: -OMEP40CA41 PO; +OXYC1TAB3 PO; -RXC5 PO
--- NOTE | 2017-10-13 11:31 | DIAGNOSTIC IMAGING REPORT ---
CHEST 2 VIEWS ROUTINE HISTORY: R91.8 Lung [id number] COMPARISON: Chest 09/07/2017. FINDINGS: The left lung remains clear. The heart is normal in size. No pneumothorax. Emphysema. Decrease in size in the lobular nodular density within the right midlung zone which measures 3.3 x 2.6 cm. There are surrounding suture material. Bilateral hilar prominence, unchanged. Hazy appearance the right lung base is also stable and may be due to postoperative change. IMPRESSION: Decrease in size in the 3.3 x 2.6 cm nodular opacity within the operative bed of the right midlung zone. Therefore, this favors a resolving loculated fluid collection. Continued follow up is recommended to ensure complete resolution. Electronically signed by: Khris Lobo M.D. 10/13/2017 11:30 AM Dictated Date/Time: 10/13/2017 11:24 AM
== END | disposition home or self-care (01) ==
LOC: C.RAD 10:51
PROVIDERS: ATTEND Surgery
DX: R91.8 Other nonspecific abnormal finding of lung field (principal)

== ENCOUNTER → 2018-01-20 | Outpatient (CLI) | payer OTHER ==
--- NOTE | 2018-01-20 13:31 | DIAGNOSTIC IMAGING REPORT ---
(CHEST) THORAX WITHOUT CT DOSE: 177.62 mGycm CLINICAL HISTORY: 67 years-old Female with C34.90 Adenocarcinoma of lung, stage 13. TECHNIQUE: Multiaxial CT images of the chest were performed without contrast. A dose lowering technique was utilized adhering to the principles of ALARA. COMPARISON: Chest CT 06/12/2017, PET CT 06/29/2017, chest radiographs 10/13/2017 FINDINGS: Low attenuating 1.1 cm right thyroid nodule. Evaluation for adenopathy is limited without use of IV contrast. No enlarged lymph nodes are seen by CT size criteria. Nonenlarged pretracheal lymph nodes measure up to 6 mm in short axis. Heart appears normal in size. No pericardial effusion. Coronary arterial disease. Moderate calcification of the aortic arch without aneurysm. Right renal arterial stent graft is partially imaged. Moderate to severe upper lobe predominant centrilobular emphysema redemonstrated. Postoperative changes from prior right upper lobectomy. Fluid is again seen layering along the fissure between the right upper and right middle lobes with adjacent suture material. There is a 4 mm solid nodule of the right middle lobe just anterior to the fissure, image 69 series 4 with additional minimal 4 mm linear nodule of the right middle lobe seen on image 60 series 4. Subsegmental atelectasis/pleural parenchymal scarring of the basal right lower lobe. 2 mm calcified granuloma of the left upper lobe anterior segment. 1 mm calcified nodule of the basal left lower lobe. Central airways are patent. No acute process of the imaged upper abdomen. Calcifications are seen within the breast parenchyma bilaterally. Soft tissues are unremarkable. Bones appear intact. IMPRESSION: 1. Postoperative changes from prior right upper lobectomy. Mild amount of fluid is noted tracking along the fissure at the level of the right lung apex. 2. There are two pulmonary nodules measuring up to 4 mm within the right middle lobe as above. Attention at follow-up recommended. 3. No pathologic adenopathy. 4. Moderate to severe upper lobe predominant centrilobular emphysema. Electronically signed by: Mike Luna M.D. 01/20/2018 1:30 PM Dictated Date/Time: 01/20/2018 1:20 PM
== END | disposition home or self-care (01) ==
LOC: C.CTS 12:52
PROVIDERS: ATTEND Surgery
DX: C34.90 Malignant neoplasm of unspecified part of unspecified bronchus or lung (principal); R91.8 Other nonspecific abnormal finding of lung field